=== PATIENT | male | born 1975 | race Native Hawaiian/Other Pacific Islander ===

== ENCOUNTER 2022-01-17 08:47 | Outpatient (CLI) | payer BC | END 2022-01-17 19:08 | disposition home or self-care (01) | LOC: CT 08:47 | PROVIDERS: ATTEND Nurse Practitioner Family | DX: K40.90 Unilateral inguinal hernia, without obstruction or gangrene, not specified as recurrent (principal) | CPT/HCPCS: Q9963 ==